=== PATIENT | female | born 1935 | race Caucasian/White ===

== ENCOUNTER 2018-03-19 12:59 | Emergency (ER) | payer MEDICARE ==
[~2018-03-19] VITALS: Ht 157.5 cm; Wt 97.5 kg
[2018-03-19] MEDS ORDERED: TETANUS/DIPHTHERIA TOX ADULT 0.5 ML SYR IM ONE (13:15)
[2018-03-19] MEDS ORDERED: SODIUM CHLORIDE 0.9% 1000ML 1,000 ML IV SCH (13:15)
[2018-03-19 13:31] LABS: BASOPHILS % 0.4 % (0.0-1.0); EOSINOPHILS # (AUTO) 0.2 (0.0-0.4); EOSINOPHILS % 1.6 % (0.0-6.0); HEMATOCRIT 34.1 % (34.2-44.1); HEMOGLOBIN 11.3 g/dL (12.0-16.0); LYMPHOCYTES # (AUTO) 1.8 (1.0-3.2); LYMPHOCYTES % 18.3 % (18.0-39.1); MEAN CORPUSCULAR HEMOGLOBIN 31.5 pg (28-32); MEAN CORPUSCULAR HGB CONC 33.1 g/dL (31-35); MONOCYTES # (AUTO) 1.1 (0.2-0.8); MONOCYTES % 11.9 % (4.4-11.3); NEUTROPHILS # (AUTO) 6.4 (2.1-6.9); NEUTROPHILS % 67.6 % (38.7-80.0); PLATELET COUNT 230 x10e3/uL (140-360); RED BLOOD COUNT 3.59 x10e6/uL (3.6-5.1); RED CELL DISTRIBUTION WIDTH 13.8 % (11.7-14.4)
[2018-03-19 14:07] LABS: INR 1.15; PROTHROMBIN TIME 13.8 seconds (11.9-14.5)
[2018-03-19 14:08] LABS: PARTIAL THROMBOPLASTIN TIME 37.2 seconds (23.8-35.5)
[2018-03-19 14:18] LABS: ALANINE AMINOTRANSFERASE 26 IU/L (0-55); ALBUMIN 2.8 g/dL (3.5-5.0); ALBUMIN/GLOBULIN RATIO 0.9 (0.8-2.0); ALKALINE PHOSPHATASE 158 IU/L (40-150); ANION GAP 12.4 mmol/L (8-16); BLOOD UREA NITROGEN 15 mg/dL (7-26); BUN/CREATININE RATIO 21 (6-25); CALCIUM 8.6 mg/dL (8.4-10.2); CARBON DIOXIDE 27 mmol/L (22-29); CHLORIDE 103 mmol/L (98-107); CREATINE KINASE 97 IU/L (29-168); CREATININE, SERUM 0.73 mg/dL (0.57-1.11); EST GLOMERULAR FILTRATION RATE > 60 ML/MIN (60-); GLUCOSE 98 mg/dL (74-118); MAGNESIUM 1.5 MG/DL (1.3-2.1); POTASSIUM 3.4 mmol/L (3.5-5.1); SODIUM 139 mmol/L (136-145)
--- NOTE | 2018-03-19 14:38 | Diagnostic Imaging Report ---
PROCEDURE: A single AP view of the chest. COMPARISON: 01/16/2010 INDICATIONS: FELL AND HIT HEAD AND HAND FINDINGS: Lines/tubes: Left chest wall pacemaker with lead tips in the expected positions. Lungs: Low lung volumes. There is no evidence of pneumonia or pulmonary edema. Pleura: There is no pleural effusion or pneumothorax. Heart and mediastinum: Normal size heart. Atherosclerosis of the thoracic aorta. Bones: Severe degenerative changes of the shoulders with elevation of the humeral heads, suggestive of chronic rotator cuff tear. IMPRESSION: No evidence of edema or infection. Dictated by: Joselo Hoyt M.D. on 03/19/2018 at 14:44 Electronically approved by: Joselo Hoyt M.D. on 03/19/2018 at 14:44
--- NOTE | 2018-03-19 14:43 | Diagnostic Imaging Report ---
Exam: Cervical spine CT without IV contrast History: Trauma, fall Comparison studies: None Technique: Axial images were obtained through the cervical region. Coronal and sagittal images reconstructed from the axial data. Intravenous contrast: None Findings: Atlantoaxial articulation: Asymmetry of the lateral atlantodental intervals and C1-C2 articulations with mild widening of the lateral atlantodental interval on the right. This is most likely chronic possibly exacerbated by degenerative changes at the left C1-C2 lateral mass articulation and mild head rotation the time of the exam. The anterior atlantodental interval is maintained. Alignment: Mild cervical curvature convex to the left at Straightened cervical curvature may be positional. Minimal anterolisthesis of C2 on C3 is most likely degenerative in etiology. Cervicomedullary junction: No abnormalities. Patent foramen magnum. Soft tissues: No gross acute abnormal allergies. Vertebrae: No acute fractures. No infection or evidence of neoplasm. Degenerative changes: C1-C2: Mild basilar agitation. Chronic flattening of the left C1 lateral mass with moderate degenerative changes at the left C1-C2 articulation with osteophyte production. C2-C3: Mildly degenerated disc. Minimal anterolisthesis of C2 on C3 with associated uncovered disc/disc bulge and mildly thickened ligamentum flavum result in only mild canal stenosis. Mild right foraminal stenosis due to uncovertebral arthrosis and moderate right facet arthrosis. Patent foramen C3-4: Mildly degenerated disc. Asymmetric left disc osteophyte complex, uncovertebral arthrosis and severe right and moderate left foraminal stenosis with moderate bilateral foraminal stenosis. No significant canal stenosis. C4-C5: Moderately degenerated disc. Disc osteophyte complex, uncovertebral arthrosis and moderate right greater than left facet arthrosis with moderate bilateral foraminal stenosis. No significant canal stenosis. C5-C6: Moderately degenerated disc. Disc osteophyte complex, uncovertebral arthrosis and facet arthrosis with mild canal stenosis moderate bilateral frontal stenosis. C6-C7: Moderately degenerated disc. Disc osteophyte complex, uncovertebral arthrosis and mild facet arthrosis with moderate right foraminal stenosis. No significant canal or left foraminal stenosis. C7-T1: Mildly degenerated disc. Severe right and mild/moderate left facet arthrosis. Significant canal foraminal stenosis. Incidental findings: Scattered calcified atherosclerosis with calcified plaque in the bilateral cervical carotid bulbs. Anatomical variant retropharyngeal course of the carotid arteries at the level of the supraglottic airway. Partially imaged leads from a cardiac device implanted in the left chest wall (as seen on the pipe fitter marine image). Mild scarring with small calcified granulomas at the lung apices. IMPRESSION: 1. No cervical spine fracture. 2. Moderate degenerative changes at the left C1-C2 articulation with asymmetry of the lateral atlantodental intervals as described. 3. Multilevel degenerative changes with multilevel disc degeneration, moderate multilevel foraminal stenosis and multi advanced facet arthrosis. Please note, cannot adequately evaluate ligament, spinal cord and or vascular abnormalities on the basis of this examination. Signed by: Dr. Lowell Ferrell M.D. on 03/19/2018 2:40 PM
--- NOTE | 2018-03-19 15:02 | Diagnostic Imaging Report ---
Exams: Head and maxillofacial CTs without IV contrast History: Trauma, fall Comparison studies: None Technique: Axial images were obtained to the vertex and maxillofacial region. Coronal and sagittal images reconstructed from the axial data. Intravenous contrast: None Findings: Scalp: No abnormalities. Bones: No fractures, blastic or lytic lesions. Brain sulci: Mild prominent Ventricles: Mild compensatory dilatation. No hydrocephalus. Extra-axial spaces: Acute left hemispheric hyperdense subdural hematoma measures up to 8 mm in max thickness at the left parieto-occipital convexity. Small acute subdural hematoma along the left superior tentorium focally measures up to 4 mm in max thickness. Mass effect is local without herniation or significant midline shift. Parenchyma: No mass, acute hemorrhage or acute cortical vascular insults. Scattered hypodensities in the supratentorial white matter are nonspecific but most compatible with chronic microvascular ischemic changes. Sellar/suprasellar region: No abnormalities Craniocervical junction: Patent foramen magnum. No Chiari one malformation. Maxillofacial CT: Soft tissues: Left temporal/prezygomatic soft tissue hematoma. Bones: No fractures. Small chronic focal depressed fracture or congenital dehiscence along the left lamina papyracea. Nonspecific lytic changes along the bilateral sphenoids at the anterior and anteroinferior temporal convexities. No associated soft tissue mass. Findings may reflect advanced focal demineralization, especially if in the absence of a history of primary malignancy or myeloma. Follow-up maxillofacial CT in 6 months (or sooner as clinically warranted) could be considered to document stability. Please see separate CT cervical spine report of the same date. Orbits: Globes and lenses are intact. Incidental bilateral senile scleral calcifications. Paranasal sinuses: A couple of right anterior posterior ethmoid air cells are opacified. Remaining sinuses are clear. Incidental findings: Scattered calcified atherosclerosis including within the included cervical carotid bulbs, carotid siphons and intradural vertebral arteries. Anatomical variant retropharyngeal course of the carotid arteries. IMPRESSION: Head CT: 1. Acute left hemispheric and left tentorial subdural hematomas with local mass effect without herniation or significant midline shift. 2. No fractures or other acute intracranial abnormalities. 3. Mild generalized volume loss. 4. Mild chronic microvascular ischemic changes. Maxillofacial CT: 1. Left temporal/prezygomatic soft tissue hematoma. 2. No acute maxillofacial fractures. 3. Incidental nonspecific bilateral inferior sphenoid lytic changes as described. Please see separate cervical spine CT report for further characterization of cervical spine findings. Acute findings discussed with Dr. Peng at 2:53 PM on 03/19/2018. Signed by: Dr. Lowell Ferrell M.D. on 03/19/2018 2:59 PM
== END 2018-03-19 18:30 | disposition short-term general hospital (02) ==
LOC: ER 12:59
DX: S06.5X0A Traumatic subdural hemorrhage without loss of consciousness, initial encounter (principal); W06.XXXA Fall from bed, initial encounter; Y93.84 Activity, sleeping; Y92.003 Bedroom of unspecified non-institutional (private) residence as the place of occurrence of the external cause; I10 Essential (primary) hypertension; Z85.42 Personal history of malignant neoplasm of other parts of uterus
CPT/HCPCS: 36415; 70450; 70486; 71045; 72125; 80053; 82550; 82553; 83735; 84484; 85025; 85610; 85730; 90471; 90714; 93005; 99285; J7030

== ENCOUNTER 2018-09-02 11:26 | Observation (INO) | payer MEDICARE ==
[~2018-09-02] VITALS: Ht 152.4 cm; Wt 62.6 kg
--- OUTSIDE RECORDS SUMMARY | 2018-09-02 11:29 | XMS REPORT ---
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 Allergies, Adverse Reactions, Alerts This patient has no known allergies or adverse reactions. Medications This patient has no known medications. Results Test Description Test Time Test Comments Text Results Atomic Results Result Comments CHEST SINGLE (PORTABLE) 2018-03-19 14:44:00 [place] [address] Patient Name: CLEMENT LAU MR #: [id number] : 1935 Age/Sex: 83/F Req #: [id number] Adm Physician: Ordered by: GEMA PENG MD Report #: [id number] Location: ER Room/Bed: Procedure: [id number] DX/CHEST SINGLE (PORTABLE) Exam Date: 03/19/18 Exam Time: 1414 REPORT STATUS: Signed PROCEDURE: A single AP view of the chest. COMPARISON: 01/16/2010 INDICATIONS: FELL AND HIT HEAD AND HAND FINDINGS: Lines/tubes: Left chest wall pacemaker with lead tips in the expected positions. Lungs: Low lung volumes. There is no evidence of pneumonia or pulmonary edema. Pleura: There is no pleural effusion or pneumothorax. Heart and mediastinum: Normal size heart. Atherosclerosis of the thoracic aorta. Bones: Severe degenerative changes of the shoulders with elevation of the humeral heads, suggestive of chronic rotator cuff tear. IMPRESSION: No evidence of edema or infection. Dictated by: Kiarra Hoyt M.D. on 03/19/2018 at 14:44 Electronically approved by: Kiarra Hoyt M.D. on 03/19/2018 at 14:44 Dictated By: KIARRA NIELSEN MD 1444 Transcribed By: DALJIT on 03/19/18 1444 COPY TO: GEMA PENG MD CT MAXIO FAC/PARANAS WO 2018-03-19 14:38:00 [place] [address] Patient Name: CLEMENT LAU MR #: [id number] : 1935 Age/Sex: 83/F Req #: [id number] Adm Physician: Ordered by: GEMA PENG MD Report #: [id number] Location: ER Room/Bed: Procedure: [id number] CT/CT MAXIO FAC/PARANAS WO Exam Date: 03/19/18 Exam Time: 1359 REPORT STATUS: Signed Exams: Head and maxillofacial CTs without IV contrast History: Trauma, fall Comparison studies: None Technique: Axial images were obtained to the vertex and maxillofacial region. Coronal and sagittal images reconstructed from the axial data. Intravenous contrast: None Findings: Scalp: No abnormalities. Bones: No fractures, blastic or lytic lesions. Brain sulci: Mild prominent Ventricles: Mild compensatory dilatation. No hydrocephalus. Extra-axial spaces: Acute left hemispheric hyperdense subdural hematoma measures up to 8 mm in max thickness at the left parieto- occipital convexity. Small acute subdural hematoma along the left superior tentorium focally measures up to 4 mm in max thickness. Mass effect is local without herniation or significant midline shift. Parenchyma: No mass, acute hemorrhage or acute cortical vascular insults. Scattered hypodensities in the supratentorial white matter are nonspecific but most compatible with chronic microvascular ischemic changes. Sellar/suprasellar region: No abnormalities Craniocervical junction: Patent foramen magnum. No Chiari one malformation. Maxillofacial CT: Soft tissues: Left temporal/prezygomatic soft tissue hematoma. Bones: No fractures. Small chronic focal depressed fracture or congenital dehiscence along the left lamina papyracea. Nonspecific lytic changes along the bilateral sphenoids at the anterior and anteroinferior temporal convexities. No associated soft tissue mass. Findings may reflect advanced focal demineralization, especially if in the absence of a history of primary malignancy or myeloma. Follow-up maxillofacial CT in 6 months (or sooner as clinically warranted) could be considered to document stability. Please see separate CT cervical spine r eport of the same date. Orbits: Globes and lenses are intact. Incidental bilateral senile scleral calcifications. Paranasal sinuses: A couple of right anterior posterior ethmoid air cells are opacified. Remaining sinuses are clear. Incidental findings: Scattered calcified atherosclerosis including within the included cervical carotid bulbs, carotid siphons and intradural vertebral arteries. Anatomical variant retropharyngeal course of the carotid arteries. IMPRESSION: Head CT: 1. Acute left hemispheric and left tentorial subdural hematomas with local mass effect without herniation or significant midline shift. 2. No fractures or other acute intracranial abnormalities. 3. Mild generalized volume loss. 4. Mild chronic microvascular ischemic changes. Maxillofacial CT: 1. Left temporal/prezygomatic soft tissue hematoma. 2. No acute maxillofacial fractures. 3. Incidental nonspecific bilateral inferior sphenoid lytic changes as described. Please see separate cervical spine CT report for further characterization of cervical spine findings. Acute findings discussed with Dr. Peng at 2:53 PM on 03/19/2018. Signed by: Dr. Yariel Ferrell M.D. on 03/19/2018 2:59 PM Dictated By: YARIEL FERRELL MD 1220 Transcribed By: SHARON on 03/19/18 6415 COPY TO: GEMA PENG MD CT BRAIN WO 2018-03-19 14:38:00 [facility] [address] [place] [address] Patient Name: CLEMENT LAU MR #: [id number] : 1935 Age/Sex: 83/F Req #: [id number] Adm Physician: Ordered by: GEMA PENG MD Report #: [id number] Location: ER Room/Bed: Procedure: [id number] CT/CT BRAIN WO Exam Date: 03/19/18 Exam Time: 1359 REPORT STATUS: Signed Exams: Head and maxillofacial CTs without IV contrast History: Trauma, fall Comparison studies: None Technique: Axial images were obtained to the vertex and maxillofacial region. Coronal and sagittal images reconstructed from the axial data. Intravenous contrast: None Findings: Scalp: No abnormalities. Bones: No fractures, blastic or lytic lesions. Brain sulci: Mild prominent Ventricles: Mild compensatory dilatation. No hydrocephalus. Extra-axial spaces: Acute left hemispheric hyperdense subdural hematoma measures up to 8 mm in max thickness at the left parieto- occipital convexity. Small acute subdural hematoma along the left superior tentorium focally measures up to 4 mm in max thickness. Mass effect is local without herniation or significant midline shift. Parenchyma: No mass, acute hemorrhage or acute cortical vascular insults. Scattered hypodensities in the supratentorial white matter are nonspecific but most compatible with chronic microvascular ischemic changes. Sellar/suprasellar region: No abnormalities Craniocervical junction: Patent foramen magnum. No Chiari one malformation. Maxillofacial CT: Soft tissues: Left temporal/prezygomatic soft tissue hematoma. Bones: No fractures. Small chronic focal depressed fracture or congenital dehiscence along the left lamina papyracea. Nonspecific lytic changes along the bilateral sphenoids at the anterior and anteroinferior temporal convexities. No associated soft tissue mass. Findings may reflect advanced focal demineralization, especially if in the absence of a history of primary malignancy or myeloma. Follow-up maxillofacial CT in 6 months (or sooner as clinically warranted) could be considered to document stability. Please see separate CT cervical spine report of the same date. Orbits: Globes and lenses are intact. Incidental bilateral senile scleral calcifications. Paranasal sinuses: A couple of right anterior posterior ethmoid air cells are opacified. Remaining sinuses are clear. Incidental findings: Scattered calcified atherosclerosis including within the included cervical carotid bulbs, carotid siphons and intradural vertebral arteries. Anatomical variant retropharyngeal course of the carotid arteries. IMPRESSION: Head CT: 1. Acute left hemispheric and left tentorial subdural hematomas with local mass effect wit hout herniation or significant midline shift. 2. No fractures or other acute intracranial abnormalities. 3. Mild generalized volume loss. 4. Mild chronic microvascular ischemic changes. Maxillofacial CT: 1. Left temporal/prezygomatic soft tissue hematoma. 2. No acute maxillofacial fractures. 3. Incidental nonspecific bilateral inferior sphenoid lytic changes as described. Please see separate cervical spine CT report for further characterization of cervical spine findings. Acute findings discussed with Dr. Peng at 2:53 PM on 03/19/2018. Signed by: Dr. Yariel Ferrell M.D. on 03/19/2018 2:59 PM Dictated By: YARIEL FERRELL MD 1455 Transcribed By: SHARON on 03/19/18 1458 COPY TO: GEMA PENG MD CT CERVICAL SPINE WO 2018-03-19 14:18:00 [place] [address] Patient Name: CLEMENT LAU MR #: [id number] : 1935 Age/Sex: 83/F Req #: [id number] Adm Physician: Ordered by: GEMA PENG MD Report #: [id number] Location: ER Room/Bed: Procedure: [id number] CT/CT CERVICAL SPINE WO Exam Date: 03/19/18 Exam Time: 1359 REPORT STATUS: Signed Exam: Cervical spine CT without IV contrast History: Trauma, fall Comparison studies: None Technique: Axial images were obtained through the cervical region. Coronal and sagittal images reconstructed from the axial data. Intravenous contrast: None Findings: Atlantoaxial articulation: Asymmetry of the lateral atlantodental intervals and C1-C2 articulations with mild widening of the lateral atlantodental interval on the right. This is most likely chronic possibly exacerbated by degenerative changes at the left C1-C2 lateral mass articulation and mild head rotation the time of the exam. The anterior atlantodental interval is maintained. Alignment: Mild cervical curvature convex to the left at Straightened cervical curvature may be positional. Minimal anterolisthesis of C2 on C3 is most likely degenerative in etiology. Cervicomedullary junction: No abnormalities. Patent foramen magnum. Soft tissues: No gross acute abnormal allergies. Vertebrae: No acute fractures. No infection or evidence of neoplasm. Degenerative changes: C1-C2: Mild basilar agitation. Chronic flattening of the left C1 lateral mass with moderate degenerative changes at the left C1-C2 articulation with osteophyte production. C2-C3: Mildly degenerated disc. Minimal anterolisthesis of C2 on C3 with associated uncovered disc/disc bulge and mildly thickened ligamentum flavum result in only mild canal stenosis. Mild right foraminal stenosis due to uncovertebral arthrosis and moderate right facet arthrosis. Patent foramen C3-4: Mildly degenerated disc. Asymmetric left disc osteophyte complex, uncovertebral arthrosis and severe right and moderate left foraminal stenosis with moderate bilateral foraminal stenosis. No significant canal stenosis. C4-C5: Moderately degenerated disc. Disc osteophyte complex, uncovertebral arthrosis and moderate right greater than left facet arthrosis with moderate bilateral foraminal stenosis. No significant canal stenosis. C5-C6: Moderately degenerated disc. Disc osteophyte complex, uncovertebral arthrosis and facet arthrosis with mild canal stenosis moderate bilateral frontal stenosis. C6-C7: Moderately degenerated disc. Disc osteophyte complex, uncovertebral arthrosis and mild facet arthrosis with moderate right foraminal stenosis. No significant canal or left foraminal stenosis. C7-T1: Mildly degenerated disc. Severe right and mild/moderate left facet arthrosis. Significant canal foraminal stenosis. Incidental findings: Scattered calcified atherosclerosis with calcified plaque in the bilateral cervical carotid bulbs. Anatomical variant retropharyngeal course of the carotid arteries at the level of the supraglottic airway. Partially imaged leads from a cardiac device implanted in the left chest wall (as seen on the first crusher image). Mild scarring with small calcified granulomas at the lung apices. IMPRESSION: 1. No cervical spine fracture. 2. Moderate degenerative changes at the left C1-C2 articulation with asymmetry of the lateral atlantodental intervals as described. 3. Multilevel degenerative changes with multilevel disc degeneration, moderate multilevel foraminal stenosis and multi advanced facet arthrosis. Please note, cannot adequately evaluate ligament, spinal cord and or vascular abnormalities on the basis of this examination. Signed by: Dr. Yariel Ferrell M.D. on 03/19/2018 2:40 PM Dictated By: YARIEL FERRELL MD 1440 Transcribed By: SHARON on 03/19/18 1440 COPY TO: GEMA PENG MD
[2018-09-02] MEDS ORDERED: PANTOPRAZOLE 40 MG 10ML VIAL IV STA (11:59)
[2018-09-02] MEDS ORDERED: SODIUM CHLORIDE 0.9% 1000ML 1,000 ML IV STA (11:59)
--- NOTE | 2018-09-02 12:49 | Diagnostic Imaging Report ---
EXAMINATION: CHEST SINGLE (PORTABLE) INDICATION: Atrial fibrillation, weakness. COMPARISON: Chest radiograph 03/19/2018. FINDINGS: TUBES and LINES: Left-sided pacemaker with leads overlying the right atrium and right ventricle. LUNGS: Lungs are moderately inflated. There are mild patchy opacities of the right upper lung. There is linear opacity in the left midlung, likely linear subsegmental atelectasis. No evidence of pulmonary edema. PLEURA: No pleural effusion or pneumothorax. HEART AND MEDIASTINUM: Mild enlargement of the cardiomediastinal silhouette. BONES AND SOFT TISSUES: No acute radiographic amount he. Partially seen findings of vertebral augmentation in the lower thoracic spine. There are severe degenerative changes of bilateral shoulders. UPPER ABDOMEN: No free air under the diaphragm. IMPRESSION: Mild patchy opacity in the right upper lung could reflect atelectasis or early pneumonia in the appropriate clinical setting. Follow-up chest radiograph is suggested in 6-8 weeks to assess for resolution. Mild cardiomegaly without evidence of pulmonary edema. Signed by: Dr. Sami Kim MD on 09/02/2018 12:46 PM
--- NOTE | 2018-09-02 13:39 | Diagnostic Imaging Report ---
EXAMINATION: Head CT HISTORY: Generalized weakness for last 3 days, confusion, history of hypertension COMPARISON: Head CT on 03/19/2018 TECHNIQUE: Multidetector axial images were obtained without contrast from the foramen magnum to the vertex . The images were reconstructed using brain and bone algorithms. Thin section brain images were reformatted into coronal and sagittal planes. Image quality: Motion/streaking artifact limits the evaluation of the skull base and posterior cranial fossa. Dose modulation, iterative reconstruction, and/or weight based adjustment of the mA/kV was utilized to reduce the radiation dose to as low as reasonably achievable. FINDINGS: Parenchyma: 1. Persistent mild chronic microvascular ischemic changes. 2. No mass or hemorrhage. No CT evidence of acute territorial vascular insult. Extra-axial spaces: No abnormal density. No extra-axial fluid collections . Interval complete resolution of previously seen left hemispheric subdural hematoma on head CT dated 03/19/2018 Brain volume: Normal for age. Ventricles: No hydrocephalus or displacement. Vessels: Slightly hyperdense left frontoparietal cortical draining vein (vein of [place]), without abnormalities in the underlying brain parenchyma to indicate venous infarction at this time. The hyperdensity may be related to hemoconcentration given patient's dehydration. Dural sinuses: No abnormal density. Extra-axial spaces: No abnormal density. Foramen magnum: No mass, Chiari malformation, or basilar invagination. Sella: No obvious mass. Paranasal/mastoid sinuses: Imaged portions unremarkable. Skull/Scalp: No lytic or blastic lesions. No fractures. IMPRESSION: 1. No acute intracranial hemorrhage or cortical infarcts. 2. Stable mild chronic microvessel ischemic changes. 3. Moderately hyperdense left frontoparietal convexity draining vein as detailed above. 4. Interval complete resolution of previously seen left subdural hematoma, which was acute on head CT dated 03/19/2018. Signed by: Dr. Veronica Mistry M.D. on 09/02/2018 1:36 PM
[2018-09-02] MEDS ORDERED: ONDANSETRON HCL INJ 2MG/ML 2ML 2 MG/ML VIAL IV PRN ×2 (14:15→16:30)
[2018-09-02] MEDS ORDERED: ACETAMINOPHEN 325 MG TAB PO PRN (14:15)
--- NOTE | 2018-09-02 14:35 | NUR ---
ATTEMPTED TO COLLECT UA FROM PT VIA STRAIGHT CATH AND PT HAS REFUSED. PT UNABLE TO TELL ME WHEN SHE NEEDS TO VOID, (PT WEARS A DIAPER). INFORMED DR. NOVAK AND ABEBE NUNEZ PT'S PRIMARY NURSE.
[2018-09-02 14:36] LABS: BASOPHILS % 0.4 % (0.0-1.0); EOSINOPHILS # (AUTO) 0.2 (0.0-0.4); EOSINOPHILS % 1.7 % (0.0-6.0); HEMOGLOBIN 12.5 g/dL (12.0-16.0); LYMPHOCYTES # (AUTO) 1.8 (1.0-3.2); LYMPHOCYTES % 19.1 % (18.0-39.1); MEAN CORPUSCULAR HGB CONC 32.9 g/dL (31-35); MEAN CORPUSCULAR VOLUME 91.3 fL (81-99); MONOCYTES # (AUTO) 0.9 (0.2-0.8); MONOCYTES % 9.9 % (4.4-11.3); NEUTROPHILS # (AUTO) 6.5 (2.1-6.9); NEUTROPHILS % 68.6 % (38.7-80.0); PLATELET COUNT 233 x10e3/uL (140-360); RED BLOOD COUNT 4.16 x10e6/uL (3.6-5.1); RED CELL DISTRIBUTION WIDTH 17.1 % (11.7-14.4)
[2018-09-02 14:44] LABS: INR 0.9
[2018-09-02 14:52] LABS: ALBUMIN 2.7 g/dL (3.5-5.0); ALBUMIN/GLOBULIN RATIO 0.9 (0.8-2.0); ANION GAP 15.6 mmol/L (8-16); CALCIUM 8.8 mg/dL (8.4-10.2); CREATININE, SERUM 1.11 mg/dL (0.57-1.11); MAGNESIUM 1.5 MG/DL (1.3-2.1); POTASSIUM 3.6 mmol/L (3.5-5.1)
[2018-09-02 14:59] LABS: CREATINE KINASE MB 0.7 ng/mL (0-5.0)
[2018-09-02 15:45] LABS: ERYTHROCYTE SEDIMENTATION RATE 13 mm/hr (0-20)
[2018-09-02] MEDS: SODIUM CHLORIDE 0.9% 1000ML 1,000 ML IV SCH (18:49)
--- NOTE | 2018-09-02 19:38 | NUR ---
NURSE UNAVAILABLE FOR REPORT
--- NOTE | 2018-09-02 19:39 | Diagnostic Imaging Report ---
EXAM: RUQ ULTRASOUND Date: 09/02/2018 4:24 PM Indication: Pain Comparison: None Technique: Sonographic evaluation of the right upper quadrant. Color doppler was utilized to supplement evaluation. FINDINGS: LIVER: No focal lesion is identified. The liver measures 18.6 cm in the right midclavicular line. Echotexture is normal. BILIARY: The gallbladder has a normal appearance, without evidence for gallstones, gallbladder wall thickening or pericholecystic fluid. The common bile duct measures 0.4 cm. PANCREAS: Inadequately visualized. RIGHT KIDNEY: Measures approximate 9.1 cm in length. Evaluation limited by overlying bowel gas. PERITONEUM: No free fluid. VASCULATURE: Aorta: Inadequately evaluated. Interior vena cava: Visualized portions appear unremarkable. Portal Vein: Nondilated with hepatopedal flow. IMPRESSION: Overlying bowel gas limits evaluation. No distinct shadowing gallstones. Borderline hepatomegaly. Right kidney in adequately evaluated. Clinical/laboratory correlation recommended. Signed by: Dr. Festus Lockhart MD on 09/02/2018 7:36 PM
[2018-09-02 21:00] VITALS: BP 128/78
--- NOTE | 2018-09-02 21:25 | NUR ---
Pt received from ER. Pt A&O 1-2 and in no apparent distress. Pt suffers from dementia. All safety measures ensured. bed alarm on, and pt call garcia near. Pt encouraged to use call garcia for assistance.
[2018-09-02 21:30] VITALS: BP 128/78
--- NOTE | 2018-09-02 21:50 | NUR ---
Pt refused straight cath for urine culture
[2018-09-03] VITALS: BP 124/61
[2018-09-03] MEDS: SODIUM CHLORIDE 0.9% 1000ML 1,000 ML IV SCH (02:30)
[2018-09-03 04:00] VITALS: BP 118/58
--- NOTE | 2018-09-03 05:03 | NUR ---
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
[2018-09-03 05:14] LABS: BASOPHILS % 0.5 % (0.0-1.0); EOSINOPHILS # (AUTO) 0.2 (0.0-0.4); EOSINOPHILS % 2.6 % (0.0-6.0); HEMATOCRIT 34.2 % (34.2-44.1); LYMPHOCYTES # (AUTO) 1.8 (1.0-3.2); LYMPHOCYTES % 22.1 % (18.0-39.1); MEAN CORPUSCULAR HEMOGLOBIN 29.4 pg (28-32); MEAN CORPUSCULAR HGB CONC 32.2 g/dL (31-35); MEAN CORPUSCULAR VOLUME 91.4 fL (81-99); MONOCYTES # (AUTO) 0.9 (0.2-0.8); MONOCYTES % 11.2 % (4.4-11.3); NEUTROPHILS % 63.2 % (38.7-80.0); PLATELET COUNT 206 x10e3/uL (140-360); RED BLOOD COUNT 3.74 x10e6/uL (3.6-5.1); RED CELL DISTRIBUTION WIDTH 17.2 % (11.7-14.4)
[2018-09-03 05:33] LABS: ANION GAP 14.5 mmol/L (8-16); CALCIUM 8.1 mg/dL (8.4-10.2); CREATININE, SERUM 0.89 mg/dL (0.57-1.11); MAGNESIUM 1.3 MG/DL (1.3-2.1); POTASSIUM 3.5 mmol/L (3.5-5.1)
--- NOTE | 2018-09-03 07:24 | NUR ---
report given to oncoming nurse
[2018-09-03 09:00] VITALS: BP 124/60
--- NOTE | 2018-09-03 11:21 | Diagnostic Imaging Report ---
Exam: Abdominal film Clinical History: Evaluate for constipation Comparison: None. DISCUSSION: Frontal view of the abdomen shows a nonobstructive bowel gas pattern with mild amount of retained stool. No dilated, air-filled loops of bowel. Multiple pelvic phleboliths. Rightward lumbar scoliosis. Bone demineralization. IMPRESSION: Nonobstructive bowel gas pattern. Small amount of retained stool. No significant constipation. Signed by: Dr. Pop Kelley M.D. on 09/03/2018 11:17 AM
[2018-09-03 11:39] VITALS: BP 151/88
--- NOTE | 2018-09-03 12:06 | NUR ---
Called [facility] Protective Services for Adults: [phone] and spoke with [place]. Pt APS case # [id number]. Pt was discharged from [facility] Saturday08/29/18, and reopened 09/02/18. His APS worker is Mr. Aliya Ghotra [phone]. CM called Mr. Ghotra and notified him pt is here and will be discharged today. He stated he did not need to see pt in the hospital, and continue with dc plans. Mr. Ghotra stated he will follow up with her after discharge. CM notified her nurse, Jc Coughlni RN. Patient to discharge home today, pending LFT lab results.
[2018-09-03 12:30] LABS: ALBUMIN 2.5 g/dL (3.5-5.0); BILIRUBIN,DIRECT 0.5 mg/dL (0.0-0.5)
--- NOTE | 2018-09-03 13:09 | NUR ---
Dr Donovan has cleared to send patient home and follow up with PCP. son will be here this afternoon to transport home.
[2018-09-03 13:10] VITALS: BP 151/88
--- NOTE | 2018-09-05 14:59 | Discharge Summary ---
PRIMARY CARE DOCTOR: Juan FINAL DIAGNOSIS: Dehydration. SECONDARY DIAGNOSES 1. Mild acute renal failure. 2. Mild liver function test elevation, slowly getting better. Right upper quadrant ultrasound was benign. 3. Dementia. 4. Hypertension. 5. Hypothyroidism. 6. Subdural hematoma due to fall in 2018. CONSULTANTS: None. PROCEDURES/STUDIES PERFORMED 1. Right upper quadrant ultrasound. 2. Head computerized tomography. HISTORY: Per H and P. HOSPITAL COURSE: The patient was admitted. The patient was hydrated. The patient is a poor historian due to her dementia. Currently, the patient is eating. There was some question of constipation. However, KUB was relatively unremarkable. The patient is also an adult protection service case. We have notified them that the patient will be discharged home. CONDITION ON DISCHARGE: Improved. DISCHARGE MEDICATIONS: Please see medication reconciliation form. FIDEL ANTOINE M.D. Job#: [id number] [place]
== END 2018-09-03 15:42 | disposition home or self-care (01) ==
LOC: ER 11:26 → ERHOLD 14:19 → IMCU 20:30
PROVIDERS: ADMIT Internal Medicine; ATTEND Internal Medicine
DX: E86.0 Dehydration (principal); R53.1 Weakness; I48.91 Unspecified atrial fibrillation; E78.5 Hyperlipidemia, unspecified; Z85.42 Personal history of malignant neoplasm of other parts of uterus; M19.90 Unspecified osteoarthritis, unspecified site; Z82.49 Family history of ischemic heart disease and other diseases of the circulatory system; B17.9 Acute viral hepatitis, unspecified; F03.90 Unspecified dementia, unspecified severity, without behavioral disturbance, psychotic disturbance, mood disturbance, and anxiety; E03.9 Hypothyroidism, unspecified; I10 Essential (primary) hypertension; N17.9 Acute kidney failure, unspecified; R79.89 Other specified abnormal findings of blood chemistry
CPT/HCPCS: 36415 ×2; 70450; 71045; 74018; 76705; 80048; 80053; 80076; 82550; 82553; 83605; 83735 ×2; 84443; 84484; 85025 ×2; 85610; 85651; 85730; 87040; 93005; 97139; 97162; 97530; 99284; C9113; G0378 ×2; J7030 ×2